=== PATIENT | female | born 1945 | race Caucasian/White ===

== ENCOUNTER 2018-02-17 20:00 | Emergency (ER) | payer MEDICARE ==
[~2018-02-17] VITALS: Ht 157.5 cm; Wt 60.0 kg
[2018-02-17 20:12] VITALS: Ht 157.5 cm; Wt 60.0 kg
[2018-02-17] MEDS ORDERED: HYDROCODON-ACE1 EAC7 PO (22:20)
[2018-02-17 23:28] VITALS: BP 170/81
[2018-02-20 14:19] VITALS: Ht 157.5 cm; Wt 60.0 kg
== END 2018-02-17 22:45 | disposition home or self-care (01) ==
LOC: D.ER 20:00
DX: S42.021A Displaced fracture of shaft of right clavicle, initial encounter for closed fracture (principal); W18.31XA Fall on same level due to stepping on an object, initial encounter; Y93.01 Activity, walking, marching and hiking; Y92.410 Unspecified street and highway as the place of occurrence of the external cause; R51 Headache

== ENCOUNTER 2018-02-20 12:21 | Day surgery (SDC) | payer MEDICARE ==
[~2018-02-20] VITALS: Ht 157.5 cm; Wt 57.2 kg
--- NOTE | ~2018-02-20 | OP ---
PATIENT NAME: KAYDEN PETERS MEDICAL RECORD: [id number] :43 LOCATION:D.OPS ADMISSION DATE: SURGEON: RONI RUBI MD DATE OF OPERATION: 02/20/2018 PREOPERATIVE DIAGNOSIS: Right distal clavicle fracture. POSTOPERATIVE DIAGNOSIS: Right distal clavicle fracture. PROCEDURE: Right distal clavicle excision. SURGEON: Roni Rubi MD ANESTHESIA: General. INTRAOPERATIVE COMPLICATIONS: None. SUMMARY OF PATHOLOGIC FINDINGS: The patient had a very small fragment that was very painful. The initial decision was to try and fix this because it was hurting; however, it represented less than 1-1.5 cm of the distal clavicle. Therefore, resection was the best option. OPERATIVE SUMMARY IN DETAIL: After obtaining the appropriate preoperative orthopedic surgery consent as well as anesthetic consultation, evaluation, and clearance, the patient was brought to the operating room and placed on the operating table in the supine position. After adequate general laryngeal mask was administered, the patient was placed in a beachchair position. All pressure points were well padded. She was held firmly to the operating table using the vacuum pack suction system. A small incision was made over the acromioclavicular joint and carried back into the area of the clavicle. On further evaluation and physical examination, the patient's clavicle was stable except for the small fragmented portions on the end. Rather than trying complex fixation on osteoporotic bone, I felt like the most viable option is for simple excision of fragmentation. Bony fragments were incised. The wound was irrigated and closed in layered fashion. Sterile dressings were applied. The patient was awakened and taken to the recovery room in stable condition. All final needle and sponge counts were correct. TRANSINT:[id number] Voice Confirmation ID: [id number] DOCUMENT ID: [id number] RONI RUBI MD at 1418 CC: [id number] DICTATION DATE: 02/27/181407 MACHINE II CUTTER: 02/27/182206 [facility] 02/20/[address] [id number]
[~2018-02-20 12:21] MED LIST: HYDROCODON-ACE1 EAC7 PO
[2018-02-20 13:07] LABS: BASOPHILS 0.5 % (0-2); EOSINOPHILS 2.1 % (0-7); HEMATOCRIT 44.8 % (36.0-48.0); HEMOGLOBIN 15.4 g/dL (12-16); IMMATURE GRANULOCYTES 0.4 % (0-5); LYMPHOCYTES 23.1 % (15-50); MCH 32.3 pg (26.0-34.0); MCHC 34.4 g/dL (31.0-37.0); MCV 93.9 fL (80.0-100.0); MEAN PLATELET VOLUME 10.6 fL (7.4-10.4); MONOCYTES 7.8 % (2-11); NEUTROPHILS 66.1 % (40-80); PLATELET COUNT 239 10x3/uL (130-400); RBC 4.77 10x6/uL (4.00-5.40); RDW 13.4 % (11.5-14.5); WBC 8.5 10x3/uL (4.8-10.8)
[2018-02-20 13:15] LABS: ANION GAP 14.6 mmol/L (8-16); CALCIUM 9.4 mg/dL (8.5-10.1); CARBON DIOXIDE 23.2 mmol/L (21.0-32.0); CREATININE - SERUM 0.8 mg/dL (0.6-1.3); POTASSIUM - SERUM 3.8 mmol/L (3.5-5.1)
[2018-02-20 14:19] VITALS: Ht 157.5 cm; Wt 57.2 kg
== END 2018-02-20 20:10 | disposition home or self-care (01) ==
LOC: D.OPS 12:21
PROVIDERS: Anesthesiology
DX: S42.031A Displaced fracture of lateral end of right clavicle, initial encounter for closed fracture (principal); Z01.812 Encounter for preprocedural laboratory examination